=== PATIENT | female | born 1995 | race Two or more races ===

== ENCOUNTER 2018-10-28 12:39 | Outpatient (CLI) | payer OTHER ==
--- NOTE | 2018-10-29 12:08 | MRI Report ---
Reason: PAIN IN LEFT ELBOW Procedure Date: 10/28/2018 Accession Number: [id number] / [id number] Procedure: MRI - Elbow LT W/O CPT Code: FULL RESULT: EXAM: LEFT ELBOW MRI WITHOUT CONTRAST EXAM DATE: 10/28/2018 02:07 PM. CLINICAL HISTORY: Lateral elbow pain post trauma. COMPARISON: None. TECHNIQUE: Multiplanar, multisequence T1-weighted and fluid-sensitive sequences of the elbow without contrast. Other: None. FINDINGS: Bones: There is a fracture of the base of the coronoid process of the ulna. There is edema of the fracture fragment, which is minimally displaced, as well as the adjacent ulna. There are no other fractures or foci of marrow edema. Articular Cartilage: Unremarkable. Ligaments: There is a high-grade partial-thickness tear of the ulnar collateral ligament at its proximal attachment. There is a low-grade partial-thickness tear of the inferior fibers of the lateral ulnar collateral ligament. The radial collateral ligament appears intact. Tendons: There is a high-grade partial-thickness tear of the common flexor origin which is partially from the inferior surface of the medial epicondyle. The distal biceps, brachialis, and triceps tendons are unremarkable. Musculature: No edema or fatty atrophy. Other: The cubital tunnel and ulnar nerve are unremarkable. Moderate sized joint effusion. The subcutaneous tissues are unremarkable. IMPRESSION: 1. Fracture of the coronoid process with edema of the fracture fragment and the underlying ulna. 2. High-grade partial-thickness tear of the ulnar collateral ligament at its proximal attachment. There is an accompanying high-grade partial-thickness tear of the common flexor origin at its humeral attachment. 3. Low-grade partial-thickness tear of the inferior fibers of the lateral ulna collateral ligament. [facility]
== END 2018-10-28 12:40 | disposition home or self-care (01) ==
LOC: DI 12:39
PROVIDERS: ATTEND Registered Nurse Diabetes Educator
DX: S52.042A Displaced fracture of coronoid process of left ulna, initial encounter for closed fracture (principal); S53.442A Ulnar collateral ligament sprain of left elbow, initial encounter; S56.012A Strain of flexor muscle, fascia and tendon of left thumb at forearm level, initial encounter